=== PATIENT | female | born 1985 | race Caucasian/White ===

== ENCOUNTER 2022-06-07 14:10 | Outpatient (CLI) | payer BC, SELFPAY ==
[2022-06-07 19:15] LABS: Hematocrit 42.5 % (37.0-47.0); Hemoglobin 13.8 g/dL (12.0-15.0); Mean Corpuscular HGB Conc 32.5 g/dl (32-36); Mean Corpuscular Hemoglobin 32.5 pg (26-34); Mean Platelet Volume 12.1 fl (7.4-10.4); Platelet Count Result 172 k/mm3 (150-375); Red Blood Count 4.25 M/mm3 (4.2-5.4); Red Cell Distribution Width 12.4 % (11.5-14.5); White Blood Count 5.7 K/mm3 (4.5-10.0)
[2022-06-07 20:07] LABS: Iron 53 ug/dL (37-170)
[2022-06-07 20:25] LABS: Percent Iron Saturation 17 % (20-50)
[2022-06-07 21:08] LABS: Alanine Aminotransferase 19 U/L (6-35); Albumin Level 4.1 g/dL (3.5-5.1); Alkaline Phosphatase 71 U/L (38-126); Anion Gap 2 mmol/L (8-16); Aspartate Amino Transferase 32 U/L (14-36); Bilirubin,Total 0.4 mg/dL (0.2-1.3); Blood Urea Nitrogen 16 mg/dL (7-17); Calcium 8.6 mg/dL (8.4-10.2); Carbon Dioxide 32 mmol/L (22-30); Chloride 104 mmol/L (98-107); Cholesterol 196 mg/dL (0-200); Estimated Glomerular Filt Rate > 60; Glucose 138 mg/dL (65-110); HDL Direct 76 mg/dL; Potassium 4.5 mmol/L (3.4-5.0); Sodium 138 mmol/L (137-145); Triglycerides 91 mg/dL (<150)
[2022-06-07 21:19] LABS: LDL Cholesterol Direct 86 mg/dL
[2022-06-07 22:11] LABS: Hemoglobin A1C 6.8 % (<5.7)
== END 2022-06-07 14:11 | disposition home or self-care (01) ==
LOC: ANHGOSHLAB 14:11
PROVIDERS: PCP Family Medicine; Visit Provider Family Medicine
DX: F90.9 Attention-deficit hyperactivity disorder, unspecified type (principal); F41.9 Anxiety disorder, unspecified; F32.A Depression, unspecified; E66.9 Obesity, unspecified; E11.9 Type 2 diabetes mellitus without complications; E61.1 Iron deficiency
CPT/HCPCS: 36415; 80053; 80061; 82728; 83036; 83540; 83550; 85027

== ENCOUNTER 2024-10-03 15:19 | Outpatient (CLI) | payer OTHER, SELFPAY ==
--- NOTE | ~2024-10-03 | MM_ITS ---
EXAMINATION: MM screening jesus BI w jesse HISTORY: Screening TECHNIQUE: Craniocaudal and mediolateral oblique 3-D tomosynthesis images were obtained and synthetic 2-D images were generated. CAD analysis was submitted and interpreted. COMPARISON: No prior mammogram is available for comparison at this institution. BREAST PARENCHYMAL COMPOSITION: Dense: The breasts are heterogeneously dense, which may obscure small masses FINDINGS: There are no suspicious masses, calcifications or architectural distortion in the right brie ast to suggest malignancy. There are subtle asymmetries of the left breast centered in the upper oute r quadrant, middle third. IMPRESSION: 1. Left breast asymmetries. 2. Additional mammographic views and possible breast ultrasound are recommended. BI-RADS Category 0: Incomplete: Needs additional imaging evaluation. Reviewed, dictated and finalized at location A. IMPRESSION: 1. Left breast asymmetries. 2. Additional mammographic views and possible breast ultrasound are recommended . BI-RADS Category 0: Incomplete: Needs additional imaging evaluation.
--- OUTSIDE RECORDS SUMMARY | 2024-10-03 15:23 | XMS_ITS | Patient Health Record ---
Author Organization [facility] Address [address] [place], [place] [id number] Care Team Providers Care Bartender Manager Name Role Phone Tulio Reese Primary Care Provider [phone] Reason For Referral No Information Social History Sex Assigned At : Social History Observation Description Sex Assigned At Female Plan Of Treatment No Information Insurance Providers Payer Name Payer Address Payer Phone Subscriber Number Group Number Insured Name Patient Relationship to Insured Coverage Start Date Coverage End Date Renuka [facility] [address] [address] [place] [phone] [id number] Overall, Alysa Self - patient is the insured 1
--- OUTSIDE RECORDS SUMMARY | 2024-10-03 15:23 | XMS_ITS | Clinical Summary ---
Author Organization [facility] Address [address] [place] [address] Care Team Providers Care Lead Pastor Name Role Phone Melonie Gardner Alva RODRIGUEZ Primary Care Provider [phone] Source Comments [facility],non-owned Affiliates and Associated Physician Practices is amultiple site organization consisting of ambulatory clinics and hospital sitesin [place], [place], [place] and [place]. This disclosure is being madepursuant to the Care Everywhere program and may not contain all information available regarding this patient. Last updated 17.[facility] Allergies No known active allergies Medications * This document contains information received from the source organization and may not represent a complete record from that organization. * Be aware that medications may not be up to date on this document. Alwaysverify current medications with the patient. Blood Glucose Monitoring Suppl (BLOOD GLUCOSE MONITOR SYSTEM) W/DEVICE KITIndications :Type 2 diabetes mellitus with hyperglycemia, without long-term current use of insulin (HCC) Use 1 device as directed 1 kit 11/17/19 Active blood glucose test stripIndicatio ns:Type 2 diabetes mellitus with hyperglycemia, without long-term current use of insulin (HCC) Use 1 strip 2 times daily 100 strip 11 11/17/19 Active lancetsIndicat ions:Type 2 diabetes mellitus with hyperglycemia, without long-term current use of insulin (HCC) Use 1 Each 2 times daily 1 Box 11 11/17/19 18 Active naproxen (NAPROSYN) 500 MG tabletIndicati ons:Carpal tunnel syndrome of right wrist Take 1 (one) tablet by mouth 2 times daily 40 tablet 04/24/19 21 Active metFORMIN (GLUCOPHAGE) 1000 MG tablet Take 1 (one) tablet by mouth daily with breakfast 90 tablet 3 05/30/19 22 Active HYDROcodone-ac etaminophen (Ione) 5-325 MG tablet Take 0.5 (one-half) tablet to 1 (one) tablet by mouth every 6 hours as needed for Pain 6 tablet 11/24/19 22 Active Additional Information Patient not taking.Reported on 11/30/2021 escitalopram (Lexapro) 10 MG tablet Take 1 (one) tablet by mouth once daily 30 tablet 1 12/01/19 22 Active Victoza 18 MG/3ML pen INJECT 1.8MG SUBCUTANEOUSLYONCE DAILY 9 mL 05/04/19 23 Active Active Problems Problem Noted Date Diagnosed Date Tobacco abuse 12/16/2017 Type 2 diabetes mellitus wit hout complication, without long-term current use of insulin 11/16/2017 Anxiety Depression Resolved Problems Problem Noted Date Diagnosed Date Resolved Date Pain, dental 05/09/2014 10/19/2017 Immunizations Immunization Administration Dates Next Due GotaCopy primary monoval ent 12+ yr 0.3mL Purple cap 02/04/2021,06/27/2020,05/22/2020 DPT 10/28/2007, 1,01/11/1986,1985,1984 DTP, HISTORIC VACCINE 10/06/1990, 986,02/23/1985,1984,1984 HEP B VACCINE 01/08/1997,08/06/1996,06/26/1996 HEP B VACCINE ADOL/ADULT 2 DOSE 01/08/1997,08/06,06/26/1996 HIB-HAEMOPHILUS INFLUENZAE B CONJUGATE VACCINE 03/12/1987 HIB-PRP-T 4 DOSE 03/12/1987 INFLUENZA VACCINE 11/25/2016,12/01/2015 INFLUENZA VACCINE, QUADR. (F LUZONE; FLULAVAL; FLUARIX; AFLURIA QUADRIVALENT; 6MO+), 0.5 ML (IIV4) 12/20/2018,12/16/2017 MMR 10/06/1990,10/05/1985 MMR VACCINE 10/06/1990,10/05/1985 PNEUMOCOCCAL PPSV23 12/16/2017 POLIO OPV 10/06/1990, 6,1984,1984 TDAP (7yrs+) 12/16/2017 Family History Medical History Relation Name Comments Dementia Maternal Grandfather Diabetes - Type 2 Maternal Grandfather None Known Mother CAD (Coronary Artery Disease) Paternal Grandmother Diabetes - Type 2 Paternal Grandmother Relation Name Status Comments Father Alive Maternal Grandfather Alive Maternal Grandmother Alive Mother Alive Paternal Grandfather Paternal Grandmother Social History Tobacco Use Types Packs/Day Years Used Date Smoking Tobacco: Every Day Cigarettes 1 8 Smokeless Tobacco: Never Tobacco Cessation:Ready to Q uit: No; Counseling Given: Yes Alcohol Use Standard Drinks/Week Comments Yes 0 (1 standard drink = 0.6 oz pur e alcohol) rarely AUDIT-C Answer Date Recorded Q1: How often do you have a drink containing alc ohol? Patient declined 09/21/2021 Q2: How many drinks containi ng alcohol do you have on a typical day when you are drinking? Patient declined 09/21/2021 Q3: How often do you have si x or more drinks on one occasion? 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 Gender Identity Not on file Sexual Orientation Not on file Occupation Industry Job Start Date Job End Date [employer] Not on file Not on file Not on file Last Filed Vital Signs Vital Sign Reading Time Taken Comments Blood Pressure 118/78 11/30/2021 2:58 PM CDT Pulse 78 11/30/2021 2:58 PM CDT Temperature 36.8 C (98.3 F) 11/30/2021 2:58 PM CDT Respiratory Rate 16 11/23/2021 9:56 AM CDT Oxygen Saturation 97% 11/30/2021 2:58 PM CDT Inhaled Oxygen Concentration - - Weight 87.1 kg (192 lb) 11/30/2021 2:58 PM CDT Height 165.1 cm (5' 5) 11/30/2021 2:58 PM CDT Body Mass Index 31.95 11/30/2021 2:58 PM CDT Plan of Treatment Health Maintenance Due Date Last Done Comments MAMMOGRAM 1984 HIV SCREENING 07/05/1999 HPV VACCINE (1 - 3-dose SCDM series) 07/05/2011 PNEUMOCOCCAL VACCINE (2 of 2 - PCV) 12/16/2018 12/16/2017 DIABETES RETINOPATHY SCREENING 08/28/2020 08/28/2018 (Done Outside Per Report) DIABETES-FOOT EXAM WITH MONOFILAMENT 05/29/2022 05/29/2021, 04/23/2020, 04/23/2020, Additional history exists DIABETES-HGB A1C 05/31/2022 11/30/2021, 04/2020, 09/19/2019, Additional history exists PAP SMEAR 07/29/2022 07/30/2019, 12/06/2012 DIABETES-SERUM CREATININE 11/30/20222021, 04/23/2020, 09/19/2019, Additional history exists COVID-19 VACCINE ( season) 2023 02/04/2021, 06/27/2020, 05/22/2020 DEPRESSION SCREENING 02/22/2024 11/30/2021 DIABETES - URINE PROTEIN SCREENING 02/22/2024 11/30/2021, 04/20/2019, 01/16/2018 DIABETES-STATIN 2024 INFLUENZA VACCINE (#1) 2024 9, 12/16/2017, 11/25/2016, Additional history exists DTAP/TDAP/TD VACCINES (8 - Td or Tdap) 12/17/2027 12/16/2017, 10/28/2007, 10/06/1990, Additional history exists ZOSTER VACCINE (1 of 2) 2034 HIB VACCINE Completed 03/12/1987, 03/12/1987 HEPATITIS B VACCINE Completed 01/08/1997, 01/08/1997, 08/06/1996, Additional history exists HEPATITIS C SCREENING Completed 04/23/2020 MENINGOCOCCAL (Group B) VACCINE SHARED DECISION-MAKING Aged Out No longer eligible based on patient's age to complete this topic MENINGOCOCCAL GROUPS A/C/Y/W VACCINE Aged Out No longer eligible based on patient's age to complete this topic Goals Goal Patient Goal Type Associated Problems Recent Progress Patient-Stated? Author Quit smoking / using tobacco Lifestyle Not on track(09/23/19 12:48 PM CDT) No Verónica Agarwal HEMOGLOBIN A1C < 7.0 Result Component 6.7(11/30/2021 3:38 PM CDT) No Mary Rodriguez Procedures Procedure Name Priority Date/Time Associated Diagnosis Comments MICROALB/CREAT RATIO URINE RANDOM PANEL Routine 11/30/2021 3:38 PM CDT Type 2 diabetes mellitus without complication, without long-term current use of insulin COMPREHENSIVE METABOLIC PANEL Routine 11/30/2021 3:38 PM CDT Type 2 diabetes mellitus without complication, without long-term current use of insulin HEMOGLOBIN A1C Routine 11/30/2021 3:38 PM CDT Type 2 diabetes mellitus without complication, without long-term current use of insulin HEPATITIS C AB W RFLX VERIFICATION Routine 04/23/2020 11:32 AM ERECTING CRANE OPERATOR Need for hepatitis C screening test PAP LB RFLX HPV ASCU Routine 07/30/2019 2:09 PM CDT Well woman exam with routine gynecological exam from Last 3 Months or Most Recently Relevant to Health Maintenance Results * MICROALB/CREAT RATIO URINE RANDOM PANEL (11/30/2021 3:38 PM CDT) Creatinine Urine 43.62 mg/dL [facility] ACCOUNT BILL Microalbumin Urine <0.5 mg/dL [facility] ACCOUNT BILL Microalbumin/Cre atinine Ratio NOT AVAILABLE mg/g [facility] ACCOUNT BILL Comment: Unable to calculate result since non-numeric result obtained for component test. Result cannot be obtained for this observation. Urine URINE SPECIMEN OBTAINED BY CLEAN CATCH PROCEDURE / Unknown 11/30/2021 3:38 PM CDT 11/30/2021 Narrative Resulting Agency Comment Lab Testing performed at: [facility] [address] [place] [id number] Melonie Gardner DO LAB - URINE CHEMISTRY ORDE JILL Final Result [facility] ACCOUNT BILL [address] [place] [address] * (ABNORMAL) HEMOGLOBIN A1C (11/30/2021 3:38 PM CDT) Hemoglobin A1c 6.7(H) <5.7 % [facility] ACCOUNT BILL Comment: AVERAGE GLUCOSE MG/DL BLOOD 146 mg/dL HbA1c Interpretation: Normal: < 5.7% Pre-diabetes: 5.7-6.4% Diabetes: Equal to or greater than 6.5% Test results diagnostic of diabetes should be repeated for c onfirmation. Treatment target values recommended by ADA and other clinica l organizations should be used to evaluate metabolic control in patients. This test should not replace glucose testing for patients wi th Type 1 diabetes, pediatric patients, or women. Falsely low HbA The [employer] assay for the measurement of HbA1c is a National Glycohemoglobin Standardization Program (NGSP) certified method. Blood BLOOD SPECIMEN / Unknown 11/30/2021 3:38 PM CDT 11/30/2021 Narrative Resulting Agency Comment Lab Testing performed at: [address] [place] [id number] Melonie Gardner DO LAB - CHEMISTRY ORDERABLES Final Result Performing Organization Address City/[facility] Co de Phone Number [facility] ACCOUNT BILL [address] [place] [address] * (ABNORMAL) COMPREHENSIVE METABOLIC PANEL (11/30/2021 3:38 PM CDT) Glucose 162(H) 70 - 105 mg/dL [facility] ACCOUNT BILL BUN 14 7 - 18.7 mg/dL [facility] ACCOUNT BILL Creatinine 0.83 0.57 - 1.11 mg/dL [facility] ACCOUNT BILL eGFR by CKD-EPI >90 >=90 mL/min/1.7 3 m2 [facility] ACCOUNT BILL Sodium 139 136 - 145 mmol/L [facility] ACCOUNT BILL Potassium 4.7 3.5 - 5.1 mmol/L [facility] ACCOUNT BILL Chloride 104 98 - 107 mmol/L [facility] ACCOUNT BILL CO2 24 23 - 31 mmol/L [facility] ACCOUNT BILL Calcium 9.2 8.4 - 10.4 mg/dL [facility] ACCOUNT BILL Protein Total 7.4 6.4 - 8.3 gm/dL [facility] ACCOUNT BILL Albumin 4.4 3.5 - 5.2 gm/dL [facility] ACCOUNT BILL Bilirubin Total 0.3 0.2 - 1.2 mg/dL [facility] ACCOUNT BILL Alkaline Phosphatase 81 40 - 150 U/L [facility] ACCOUNT BILL AST 16 5 - 34 U/L [facility] ACCOUNT BILL ALT 9 0 - 61 U/L [facility] ACCOUNT BILL Blood BLOOD SPECIMEN / Unknown 11/30/2021 3:38 PM CDT 11/30/2021 Narrative Resulting Agency Comment Lab Testing performed at: [facility] [address] [place] [id number] Melonie Gardner DO LAB - CHEMISTRY ORDERABLES Final Result Performing Organization Address City/[facility]/ZIP Co de Phone Number [facility] ACCOUNT BILL [address] [place] [address] * HEPATITIS C AB W RFLX VERIFICATION (04/23/2020 11:32 AM ERECTING CRANE OPERATOR) Pathologist [facility] Hepatitis C Antibody <0.1 0.0 - 0.9 s/co ratio [facility] ACCOUNT BILL Blood BLOOD SPECIMEN / Unknown 04/23/2020 11:32 AM ERECTING CRANE OPERATOR 04/23/2020 Narrative Resulting Agency Comment Lab Testing performed at: [place] [id number] [facility] [id number] Melonie Gardner DO LAB - CHEMISTRY ORDERABLES Final Result [facility] ACCOUNT BILL [address] [place] [address] * PAP LB RFLX HPV ASCU (07/30/2019 2:09 PM CDT) Diagnosis [facility] ACCOUNT BILL Comment: NEGATIVE FOR INTRAEPITHELIAL LESION OR MALIGNANCY. THIS SPECIMEN WAS RESCREENED PART OF OUR PROJECT MANAGEMENT DIRECTOR PROGRAM. Specimen Adequacy [facility] ACCOUNT BILL Comment: Satisfactory for evaluation. Endocervical and/or squamous metaplastic cells (endocervical component) are present. Clinician Provided ICD10 [facility] ACCOUNT BILL Comment:Z01.419 Performed by [facility] ACCOUNT BILL Comment:Norma Cortez, Cyto technologist (ASCP) QC Reviewed by [facility] ACCOUNT BILL Comment:Gerda Hardin Giving Officer (ASCP) Comment . [facility] ACCOUNT BILL Note [facility] ACCOUNT BILL Comment: The Pap smear is a screening test designed to aid in the detection of premalignant and malignant conditions of the uterine cervix. It is not a diagnostic procedure and should not be used as the sole means of detecting cervical cancer. Both false-positive and false-negative reports do occur. . Note [facility] ACCOUNT BILL Comment: The HPV DNA reflex criteria were not met with this specimen result therefore, no HPV testing was performed. . Pathology/Cytolog y PART OF UTERINE CERVIX / Unknown 07/30/2019 2:09 PM CDT 07/31/2019 Narrative [facility] ACCOUNT BILL - 08/02/2019 1:08 PM CDT Source.............Cervix;Endocervix No. of containers..01 ThinPrep Vial Resulting Agency Comment Lab Testing performed at: [address] [id number] Melonie Gardner DO LAB - PATHOLOGY/CYTOLOGY O RDERABLES Final Result [facility] ACCOUNT BILL [address] [place] [address] from Last 3 Months or Most Recently Relevant to Health Maintenance Insurance ZAKIA [facility] JOSE HERNANDEZ [id number] Care Teams Lead Pastor Relationship Specialty Start Date End Date Melonie Gardner DO [address] [facility] [address] PCP - General Family Medicine 10/19/17
--- OUTSIDE RECORDS SUMMARY | 2024-10-03 15:23 | XMS_ITS | Encounter Summary ---
Author Organization [facility] Address [address] [place] [address] Care Team Providers Care Insights Manager Name Role Phone Melonie Gardner DO Primary Care Provider [phone] Christiano Levin MD Unavailable [phone] Melonie Gardner DO Unavailable [phone] Encounter Details Date Type Department Care Team (Late st Contact Info) Description 10/08/2021 [facility] Outpatient Visit [facility] Orthopedics - Radiology [address] [place], [place] [id number] Document, Scanned Social History Tobacco Use Types Packs/Day Years Used Date Smoking Tobacco: Every Day Cigarettes 1 8 Smokeless Tobacco: Never Alcohol Use Standard Drinks/Week Comments Yes 0 [...] drinks on one occasion? 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 Author Quit smoking / using tobacco Lifestyle Not on track(09/23/19 12:48 PM CDT) No Verónica Agarwal HEMOGLOBIN A1C < 7.0 Result Component 6.7(11/30/2021 3:38 PM CDT) No Mary Rodriguez documented as of this encounter Visit Diagnoses Not on filedocumented in this encounter Care Teams Insights Manager Relationship Specialty Start Date End Date Melonie Gardner DO [address] [facility] [address] PCP - General Family Medicine 10/19/17 Melonie Gardner DO [address] [place] [address] PCP - Attributed-[place] [employer] 07/22/21 11/08/22 Christiano Levin MD [address] [place] [id number] Obstetrics and Gynecology 05/29/21 11/29/21 documented as of this encounter
--- OUTSIDE RECORDS SUMMARY | 2024-10-03 15:23 | XMS_ITS | Encounter Summary ---
Author Organization [facility] Address [address] [place] [address] Care Team Providers Care Rock Star Name Role Phone Melonie Gardner DO Primary Care Provider [phone] Christiano Levin MD Unavailable [phone] Melonie Gardner DO Unavailable [phone] Encounter Details Date Type Department Care Team (Late st Contact Info) Description 08/31/2021 [facility] Outpatient Visit [facility] Orthopedics - Radiology [address] [place], [place] [id number] Document, Scanned Social History Tobacco Use Types Packs/Day Years Used Date Smoking Tobacco: Every Day Cigarettes 1 8 Smokeless Tobacco: Never Alcohol Use Standard Drinks/Week Comments Yes 0 (1 standard drink = 0.6 oz pur e alcohol) rarely Comments No Sex and Gender Information Value Date Recorded Sex Assigned at Not on file 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 Gender Identity Not on file Sexual Orientation [...] 7.0 Result Component 6.7(11/30/2021 3:38 PM CDT) Mary Wiledr documented as of this encounter Visit Diagnoses Not on filedocumented in this encounter Care Teams Rock Star Relationship Specialty Start Date End Date Melonie Gardner DO [address] [place] [address] PCP - General Family Medicine 10/19/17 Melonie Gardner DO [address] [place] [address] PCP - Attributed-[place] [employer] 07/22/21 11/08/22 Christiano Levin MD [address] [place], [place] [id number] Obstetrics and Gynecology 05/29/21 11/29/21 documented as of this encounter
--- OUTSIDE RECORDS SUMMARY | 2024-10-03 15:23 | XMS_ITS | Clinical Summary ---
Author Organization [facility] [address] Address [address] [place] [address] Care Team Providers Care Senior Investment Analyst Name Role Phone Clemencia Tamayo MD Primary Care Provider [phone] Christiano Levin MD Unavailable [phone] Allergies No known active allergies Medications phendimetrazine tartrate (BONTRIL PDM) 35 mg tablet Take 1 tablet by mouth 3 (three) times a day. Active citalopram (CeleXA) 40 mg tabletIndication s:Major depression, recurrent, chronic Take 1 tablet (40 mg total) by mouth daily. 90 tablet 1 11/25/2016 Active Active Problems Problem Noted Date Diagnosed Date Episode of recurrent major depressive disorder 1 Overview (11/25/2016): Increase citalopram from 20mg to 40mg. Return precautions discussed. Immunizations Immunization Administration Dates Next Due Influenza, Unspecified 11/25/2016,12/01/2015 Surgical History Surgery Date Site/Laterality Comments THERAPEUTIC 02/21/2007 - 02/21/2008 ORAL SURGERY has had about 8 teeth removed WISDOM TOOTH EXTRACTION Medical History Medical History Date Comments Depression Sleep difficulties Obesity Anxiety Family History Medical History Relation Name Comments Depression Father Learning disabilities Father Thyroid disease Father Diabetes Maternal Grandfather Depression Mother Mental illness Mother Early Paternal Grandfather Heart disease Paternal Grandmother Relation Name Status Comments Father Alive Maternal Grandfather Alive Maternal Grandmother Alive Mother Alive Paternal Grandfather Paternal Grandmother Social History Tobacco Use Types Packs/Day Years Used Date Smoking Tobacco: Every Day Cigarettes Smokeless Tobacco: Never Tobacco Cessation:Ready to Q uit: No; Counseling Given: Yes Alcohol Use Standard Drinks/Week Comments Yes 0 (1 standard drink = 0.6 oz pur e alcohol) a few times a year Comments Unknown Sex and Gender Information Value Date Recorded Sex Assigned at Not on file Legal Sex Female 10:03 AM UNDERCAR SPECIALIST Gender Identity Not on file Sexual Orientation Not on file Obstetrics History Last Filed Vital Signs Vital Sign Reading Time Taken Comments Blood Pressure 132/74 11/25/2016 9:08 AM CDT Pulse 73 11/25/2016 9:08 AM CDT Temperature - - Respiratory Rate - - Oxygen Saturation - - Inhaled Oxygen Concentration - - Weight 82.6 kg (182 lb 3.2 oz) 11/25/2016 9:08 A M CDT Height 165.1 cm (5' 5) 11/25/2016 9:08 AM CDT Body Mass Index 30.32 11/25/2016 9:08 AM CDT Plan of Treatment Not on file Care Teams Senior Investment Analyst Relationship Specialty Start Date End Date Clemencia Tamayo MD [address] [place] [address] PCP - General Family Medicine 10/12/16 Christiano Levin MD [address] [address] Obstetrics and Gynecology 10/21/16
== END 2024-10-03 15:20 | disposition home or self-care (01) ==
LOC: ANHIMG 15:21
PROVIDERS: PCP Family Medicine; Visit Provider Family Medicine
DX: Z12.31 Encounter for screening mammogram for malignant neoplasm of breast (principal); R92.8 Other abnormal and inconclusive findings on diagnostic imaging of breast
CPT/HCPCS: 77063; 77067

== ENCOUNTER 2024-11-19 13:43 | Outpatient (CLI) | payer OTHER, SELFPAY ==
--- NOTE | ~2024-11-19 | MMUS_ITS ---
EXAMINATION: MM diagnostic jesus LT w jesse, US breast LT complete HISTORY: Follow-up breast asymmetry TECHNIQUE: Additional 3-D tomosynthesis images of the left breast were performed and synthetic 2-D images were generated. CAD analysis was submitted and interpreted. High resolution complete left breast ultrasound was performed. COMPARISON: 10/03/2024 BREAST PARENCHYMAL COMPOSITION: Dense: The breasts are heterogeneously dense, which may obscure small masses FINDINGS: MAMMOGRAPHIC FINDINGS: There is a persistent focal asymmetry centrally in the left breast on CC view. There are no suspicious calcifications or architectural distortion. ULTRASOUND: Complete US of all 4 quadrants of the left breast/s and retroareolar region was reviewed. At 12:00, 1 cm from the nipple there is a 4 mm cyst which does not definitely correspond to the asymmetry seen on mammography. IMPRESSION: 1. Probable benign asymmetry of the left breast without definitive sonographic correlate. 2. Recommend 6 month follow-up diagnostic left mammogram with possible additional ultrasound. BI-RADS category 3, probably benign findings. Reviewed, dictated and finalized at location B. IMPRESSION: 1. Probable benign asymmetry of the left breast without definitive sonographic correlate. 2. Recommend 6 month follow-up diagnostic left mammogram with possible addition al ultrasound. BI-RADS category 3, probably benign findings.
--- OUTSIDE RECORDS SUMMARY | 2024-11-19 14:08 | XMS_ITS | Encounter Summary ---
Author Organization [facility] Address [address] [place] [address] Care Team Providers Care Woven Paper Hat Mender Name Role Phone Melonie Gardner DO Primary Care Provider [phone] Christiano Levin MD Unavailable Melonie Gardner DO Unavailable [phone] Encounter Details Date Type Department Care Team (Late st Contact Info) Description 10/08/2021 [facility] Outpatient Visit [facility] Orthopedics - Radiology [address] [place], [place] [id number] Document, Scanned Social History Tobacco Use Types [...] on file Legal Sex Female 4:49 AM CREDIT DIRECTOR Gender Identity Not on file Sexual Orientation [...] on filedocumented in this encounter Care Teams Woven Paper Hat Mender Relationship Specialty Start Date End Date Melonie Gardner DO [address] [facility] [place] [address] PCP - General Family Medicine 10/19/17 Melonie Gardner DO [address] [place] [address] PCP - Attributed-[place] [employer] 07/22/21 11/08/22 Christiano Levin MD [address] [place] [id number] Obstetrics and Gynecology 05/29/21 11/29/21 documented as of this encounter
--- OUTSIDE RECORDS SUMMARY | 2024-11-19 14:08 | XMS_ITS | Encounter Summary ---
Author Organization [facility] Address [address] [place] [address] Care Team Providers Care Clinical Nursing Assistant Name Role Phone Melonie Gardner DO Primary Care Provider [phone] Christiano Levin MD Unavailable [phone] Melonie Gardner DO Unavailable [phone] Encounter Details Date Type Department Care Team (Late st Contact Info) Description 08/31/2021 [facility] Outpatient Visit [facility] Orthopedics - Radiology [address] [place], [place] [id number] Document, Scanned Social History Tobacco Use Types Packs/Day Years Used Date Smoking Tobacco: Every Day Cigarettes 1 8 Smokeless Tobacco: Never Alcohol Use Standard Drinks/Week Comments Yes 0 (1 standard drink = 0.6 oz pur e alcohol) rarely Comments No Sex and Gender Information Value Date Recorded Sex Assigned at Not on file Legal Sex Female 4:49 AM RECIPROCATING DRILL OPERATOR Gender Identity Not on file Sexual [...] Result Component 6.7(11/30/2021 3:38 PM CDT) Mary Wilder documented as of this encounter Visit Diagnoses Not on filedocumented in this encounter Care Teams Clinical Nursing Assistant Relationship Specialty Start Date End Date Melonie Gardner DO [address] [place] [address] PCP - General Family Medicine 10/19/17 Melonie Gardner DO [address] [place] [address] PCP - Attributed-[place] [employer] 07/22/21 11/08/22 Christiano Levin MD [address] [place], [place] [address] Obstetrics and Gynecology 05/29/21 11/29/21 documented as of this encounter
--- OUTSIDE RECORDS SUMMARY | 2024-11-19 14:08 | XMS_ITS | Patient Health Record ---
Author Organization [facility] Address [address] [place], [place] [id number] Care Team Providers Care Visitor Service Assistant Name Role Phone Tulio Reese Primary Care Provider [phone] Reason For Referral No Information Social History Sex Assigned At : Social History Observation Description Sex Assigned At Female Plan Of Treatment No Information Insurance Providers Payer Name Payer Address Payer Phone Subscriber Number Group Number Insured Name Patient Relationship to Insured Coverage Start Date Coverage End Date Ren[facility] [address] [address] [place] [phone] [id number] Overall, Alysa Self - patient is the insured 1
--- OUTSIDE RECORDS SUMMARY | 2024-11-19 14:09 | XMS_ITS | Clinical Summary ---
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
--- OUTSIDE RECORDS SUMMARY | 2024-11-19 14:09 | XMS_ITS | Clinical Summary ---
Author Organization [facility] Address [address] [place] [address] Care Team Providers Care Sweeping Compound Blender Name Role Phone Melonie Gardner Alva RODRIGUEZ Primary Care Provider [phone] Source Comments [facility],non-owned Affiliates and Associated Physician Practices is amultiple site organization consisting of ambulatory clinics and hospital sitesin [place], [place], [place] and [place]. This disclosure is being madepursuant to the Care Everywhere program and may not contain all information available regarding this patient. 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 Gender Identity Not on file Sexual Orientation [...] CREATININE 11/30/20222021, 04/23/2020, 09/19/2019, Additional history exists DEPRESSION SCREENING 02/22/2024 11/30/2021 DIABETES - URINE PROTEIN SCREENING 02/22/2024 11/30/2021, 04/20/2019, 01/16/2018 DIABETES-STATIN 2024 COVID-19 VACCINE ( season) 2024 02/04/2021, 06/27/2020, 05/22/2020 INFLUENZA VACCINE (#1) 2024 9, 12/16/2017, 11/25/2016, [...] W RFLX VERIFICATION Routine 04/23/2020 11:32 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 Falsely low HbA The [employer] Supervisor Winding Department assay for the measurement of HbA1c is a National Glycohemoglobin Standardization Program (NGSP) certified method. Blood BLOOD SPECIMEN / Unknown 11/30/2021 3:38 PM CDT 11/30/2021 Narrative Resulting Agency Comment Lab Testing performed at: [address] [place] [id number] Melonie Gardner DO LAB - CHEMISTRY ORDERABLES Final Result Performing Organization Address City/[facility] Co de Phone Number [facility] ACCOUNT BILL [address] [place] [address] * (ABNORMAL) COMPREHENSIVE METABOLIC PANEL (11/30/2021 3:38 [...] Resulting Agency Comment Lab Testing performed at: [facility] [address] [address] [place] [id number] Melonie Gardner DO LAB - CHEMISTRY ORDERABLES Final Result Performing Organization Address City/[facility]/ZIP Co de Phone Number [facility] ACCOUNT BILL [address] [place] [address] * HEPATITIS C AB W RFLX VERIFICATION (04/23/2020 11:32 AM HEADING MATCHER AND ASSEMBLER) Pathologist [facility] Hepatitis C Antibody <0.1 0.0 - 0.9 s/co ratio [facility] ACCOUNT BILL Blood BLOOD SPECIMEN / Unknown 04/23/2020 11:32 AM HEADING MATCHER AND ASSEMBLER 04/23/2020 Narrative Resulting Agency Comment Lab Testing performed at: [place] [id number] [facility] [id number] Melonie Gardner DO LAB - CHEMISTRY ORDERABLES Final Result [facility] ACCOUNT BILL [address] [place] [address] * PAP LB RFLX HPV ASCU (07/30/2019 2:09 PM CDT) Diagnosis [facility] ACCOUNT BILL Comment: NEGATIVE FOR INTRAEPITHELIAL LESION OR MALIGNANCY. THIS SPECIMEN WAS RESCREENED PART OF OUR RADIOLOGIC TECHNOLOGY TEACHER PROGRAM. Specimen Adequacy [facility] ACCOUNT BILL Comment: Satisfactory for evaluation. Endocervical and/or squamous metaplastic cells (endocervical component) are present. Clinician Provided ICD10 [facility] ACCOUNT BILL Comment:Z01.419 Performed by [facility] ACCOUNT BILL Comment:Norma Cortez, Cyto technologist (ASCP) QC Reviewed by [facility] ACCOUNT BILL Comment:Gerda Hardin Lead Software Architect (ASCP) Comment . [facility] ACCOUNT BILL Note [...] Resulting Agency Comment Lab Testing performed at: [address] [id number] Melonie Gardner DO LAB - PATHOLOGY/CYTOLOGY O RDERABLES Final Result [facility] ACCOUNT BILL [address] [place] [address] from Last 3 Months or Most Recently Relevant to Health Maintenance Insurance [employer] [place] [id number] Care Teams Sweeping Compound Blender Relationship Specialty Start Date End Date Melonie Gardner DO [address] [place] [address] PCP - General Family Medicine 10/19/17
== END 2024-11-19 13:44 | disposition home or self-care (01) ==
LOC: ANHFOHIMG 13:44
PROVIDERS: PCP Family Medicine; Visit Provider Nurse Practitioner Obstetrics & Gynecology
DX: R92.8 Other abnormal and inconclusive findings on diagnostic imaging of breast (principal)
CPT/HCPCS: 76641; 77061; 77065; G0279